=== PATIENT | male | born 1990 | race Two or more races ===

== ENCOUNTER 2023-03-17 17:48 | Emergency (ER) | payer OTHER ==
[~2023-03-17] VITALS: Ht 170.2 cm; Wt 81.6 kg
[2023-03-17] MEDS ORDERED: KETOROLAC TROMETHAMINE INJ 60 MG/2 ML VIAL IM ONE ×2 (18:30→18:43)
[2023-03-17] MEDS ORDERED: HYDROCODONE/APAP 5/325MG TABLET PO ONE (18:30)
[2023-03-17] MEDS ORDERED: HYDROCODONE/APAP 5/325MG TABLET ONE (18:43)
[2023-03-17] MEDS ORDERED: IBUP-1953 PO (19:52)
[2023-03-17 20:33] VITALS: BP 120/69; TEMP 99.5; O2SAT 99
== END 2023-03-17 19:45 | disposition left against medical advice (07) ==
LOC: ER 17:57
DX: S22.41XA Multiple fractures of ribs, right side, initial encounter for closed fracture (principal); Z60.2 Problems related to living alone; W01.0XXA Fall on same level from slipping, tripping and stumbling without subsequent striking against object, initial encounter; Y93.89 Activity, other specified; Y92.89 Other specified places as the place of occurrence of the external cause; Y99.8 Other external cause status
CPT/HCPCS: 99285; 71250; 96372; J1885